=== PATIENT | female | born 1995 | race Caucasian/White ===

== ENCOUNTER 2022-11-07 18:44 | Observation (INO) | payer MEDICAID, SELFPAY ==
[2022-11-07 18:45] VITALS: BP 144/100; PULSE 108; RESP 16; TEMP 36.3; O2SAT 98; BMI 27.2
--- NOTE | 2022-11-07 19:11 | EX.ED.SAOD ---
HPI History of Present Illness Chief Complaint: Substance Abuse Narrative Narrative: 27-year-old female presents for detox from heroin and Xanax/benzodiazepines. She states she last used 2 days ago where she took 4 mg of Xanax, and injected heroin. She usually uses a gram a day. She states that she used to snort heroin but started hanging out with the wrong crowd and states she started injecting. She last used 2 days ago again. She presents for detox. She states the last time she went through rehab was when she was in [facility]. She was sober for a year until a few months ago. She states she is ready to get clean and denies any suicidal ideation. No hallucinations. She states that over the last few days she has had nausea and vomiting and diarrhea and has been sick. PFSH PFSH Allergy/AdvReac Type Severity Reaction Status Date / Time No Known Allergies Allergy Verified 11/07/22 18:47 Social History Smoking Status: Current every day smoker tobacco type: cigarettes ROS ROS ED ROS Narrative Constitutional: No fever, no chills. HEENT: No sore throat. No neck pain. No loss of vision. No rhinorrhea. Cardiovascular: No chest pain. No palpitations. No pedal edema. Respiratory: No cough, no shortness of breath. Abdominal: No abdominal pain. Positive nausea. Positive vomiting. Positive diarrhea. Genitourinary: No dysuria. No hematuria. Musculoskeletal: No myalgias. No arthralgias. Neurologic: No headaches. No dizziness. No lightheadedness. Sick and shaky. Skin: No rash. No change in color. Psychiatric: No depression. No anxiety. EXAM Physical Exam Narrative Exam Narrative: Afebrile. Vital signs noted. HEENT: Normocephalic. Atraumatic. PERRL, EOMI. Neck soft and supple. No point tenderness or step off. Cardiovascular: Mild tachycardia at 108. No murmurs, rubs, or gallops appreciated. Respiratory: No tachypnea. Lungs clear to auscultation bilaterally. Gastrointestinal: Abdomen soft, nontender, with normoactive bowel sounds. No rebound or guarding. Neurological: Awake. Alert. Nonfocal, nonlateralizing. Skin: No rash. Normal color. No pallor. Musculoskeletal: No pedal edema. Full range of motion extremities. Const Vital Signs: 11/07/22 18:45 Temperature 97.3 F L Temperature Source Temporal Pulse Rate 108 H Respiratory Rate 16 Blood Pressure 144/100 H Blood Pressure Mean 114 Pulse Ox 98 Oxygen Delivery Method Room Air MDM MDM MDM Narrative Medical decision making narrative: Medical screening labs were obtained. CBC shows slightly elevated white count of 11.5 which I think is nonspecific, hemoglobin normal at 13.9, normal platelet count. Electrolyte panel shows chloride slightly elevated at 113, normal BUN and normal creatinine. Urine for drugs of abuse positive for barbiturates, benzodiazepines, and cocaine. Negative for opiates. Alcohol level is negative. Serum is negative. At this point in time, she will be discussed with the hospitalist, Dr. Hernandez, for admission to detox. Patient is in stable condition. She did request Tylenol for dental pain which she was given 1 g orally. Lab Data Attestation: I reviewed the patient's lab results. Labs: Laboratory Results - last 24 hr 11/07/22 11/07/22 11/07/22 19:20 19:40 19:40 WBC 11.5 H RBC 4.78 Hgb 13.9 Hct 43.9 MCV 91.8 MCH 29.1 MCHC 31.7 L RDW Std Deviation 46.2 H RDW Coeff of Anna 13.6 Plt Count 298 MPV 10.8 Immature Gran % (Auto) 0.300 Neut % (Auto) 75.9 H Lymph % (Auto) 18.8 L [place] % (Auto) 3.8 Eos % (Auto) 0.9 Baso % (Auto) 0.3 Absolute Neuts (auto) 8.7 H Absolute Lymphs (auto) 2.16 Nucleated RBC % 0 Sodium 141 Potassium 3.6 Chloride 113 H Carbon Dioxide 22.0 Anion Gap 6 BUN 11 Creatinine 0.81 Estim Creat Clear Calc 110.82 Est GFR (MDRD) Af Amer 108 Est GFR (MDRD) Non-Af 89 BUN/Creatinine Ratio 13.6 Glucose 128 H Calcium 9.1 Total Bilirubin 0.20 AST 13 L ALT 32 Alkaline Phosphatase 70 Total Protein 7.7 Albumin 3.4 Globulin 4.3 H Albumin/Globulin Ratio 0.8 L Serum , Qual Urine Opiates Screen NEGATIVE Urine Methadone Screen NEGATIVE Ur Barbiturates Screen POSITIVE H Ur Phencyclidine Scrn NEGATIVE Ur Amphetamines Screen NEGATIVE MDMA (Ecstasy) Screen NEGATIVE U Benzodiazepines Scrn POSITIVE H Urine Cocaine Screen POSITIVE H U Cannabinoids Screen NEGATIVE Ur Drug Screen Comment Ethyl Alcohol 11/07/22 11/07/22 19:40 19:40 WBC RBC Hgb Hct MCV MCH MCHC RDW Std Deviation RDW Coeff of Anna Plt Count MPV Immature Gran % (Auto) Neut % (Auto) Lymph % (Auto) [place] % (Auto) Eos % (Auto) Baso % (Auto) Absolute Neuts (auto) Absolute Lymphs (auto) Nucleated RBC % Sodium Potassium Chloride Carbon Dioxide Anion Gap BUN Creatinine Estim Creat Clear Calc Est GFR (MDRD) Af Amer Est GFR (MDRD) Non-Af BUN/Creatinine Ratio Glucose Calcium Total Bilirubin AST ALT Alkaline Phosphatase Total Protein Albumin Globulin Albumin/Globulin Ratio Serum , Qual NEGATIVE Urine Opiates Screen Urine Methadone Screen Ur Barbiturates Screen Ur Phencyclidine Scrn Ur Amphetamines Screen MDMA (Ecstasy) Screen U Benzodiazepines Scrn Urine Cocaine Screen U Cannabinoids Screen Ur Drug Screen Comment Ethyl Alcohol < 3.0 Discharge Plan Dx/Rx/DC Orders Clinical Impression: Desire for detoxification, Heroin dependence, Benzodiazepine abuse Disposition Disposition: Acute Care Hospital [facility]
[2022-11-07 19:47] LABS: Absolute Lymphocyte Count 2.16 X10^3/uL (0.83-4.51); Absolute Neutrophil Count 8.7 X10^3/uL (2.0-7.7); Basophil# 0.03 X10^3/uL; Basophil% 0.3 % (0-1); Eosinophils% 0.9 % (0-5); Hematocrit 43.9 % (37-47); Hemoglobin 13.9 g/dL (12.0-15.0); Lymphocyte # 2.16 X10^3/ul (0.83-4.51); Lymphocyte % 18.8 % (19-41); Mean Corp Hgb Conc 31.7 g/dL (32-36); Mean Corpuscular Hgb 29.1 pg (27.0-32.0); Mean Corpuscular Volume 91.8 fL (81-99); Mean Platelet Vol. 10.8 fl (6.2-12.0); Monocyte# 0.44 X10^3/uL; Monocyte% 3.8 % (0-10); NRBC Flagged by Analyzer 0 % (0-5); Neutrophil % 75.9 % (47-70); Platelet Count 298 K/mm3 (150-450); RBC Distribution Width CV 13.6 % (11.6-14.6); RBC Distribution Width SD 46.2 fl (35.1-43.9); Red Blood Count 4.78 M/mm3 (4.2-5.4); White Blood Count 11.5 K/mm3 (4.4-11.0)
[2022-11-07 20:05] LABS: Alcohol, Blood (Medical)-Serum < 3.0 mg/dL
[2022-11-07 20:05] LABS: Amphetamine Urine VISTA NEGATIVE (<1000 ng/mL); Barbiturate Urine VISTA POSITIVE (< 200 ng/mL); Benzodiazepine Urine VISTA POSITIVE (< 200 ng/mL); Cocaine Urine VISTA POSITIVE (< 300 ng/mL); Ecstacy Urine VISTA NEGATIVE (< 500 ng/mL); Methadone Urine VISTA NEGATIVE (< 300 ng/mL); PCP Urine VISTA NEGATIVE (< 25 ng/mL); THC Urine VISTA NEGATIVE (< 50 ng/mL); Vista UDS pH Range 8
[2022-11-07 20:06] LABS: ALB/GLOB Ratio 0.8 RATIO (0.9-2.4); AST(SGOT) 13 U/L (15-37); Alanine Aminotransfer ALT/SGPT 32 U/L (13-56); Albumin, Serum 3.4 g/dL (3.2-5.0); Alkaline Phosphatase 70 U/L (45-117); Anion Gap 6 (5-15); BUN 11 mg/dL (7-18); BUN/Creat Ratio 13.6 RATIO (10-20); Calcium,Total 9.1 mg/dL (8.5-10.1); Chloride 113 mmol/L (98-107); Creatinine, Serum 0.81 mg/dL (0.55-1.02); EST Glomerular Filtration Rate 89 mL/min (>60); Est Glom Filt Rate - Afr Amer 108 mL/min (>60); Estimated Creatinine Clearance 110.82 ml/min; Globulin 4.3 g/dL (2.2-4.2); Glucose 128 mg/dL (74-106); Potassium 3.6 mmol/L (3.5-5.1); Protein, Total 7.7 g/dL (6.4-8.2); Sodium Level 141 mmol/L (136-145)
[2022-11-07 20:10] LABS: Internal QC Validated? YES +Cl - CLEAR BKGD; Pregnancy, Serum, hCG Quali. NEGATIVE Negative
[2022-11-07] MEDS: Acetaminophen 500 MG Tablet 1000 MG PO (20:28)
--- NOTE | 2022-11-07 21:13 | PCM.HP.STD ---
HPI - General General Date of Admission: 11/07/22 Date of Service: 11/07/22 Chief Complaint: Desire for detoxification HPI Narrative ALEYDA MORGAN, is a 27 F with a significant history of polysubstance abuse who presents to the emergency department with help for detoxification. Of note the patient's uses Xanax and heroin. Xanax use: Reportedly, she has been using 2 tablets of 2 mg Xanax daily that is a total of 4 mg daily. She takes it orally. Reportedly she has been using for 'few years'. Last time she used was 2 days ago. Heroin use: Reportedly she uses 1 g every day. She snorts. Reportedly she has been using for 'few years'. Last time she used was 2 days ago. [facility]. She reportedly she [facility] out from the [facility] in October 2021. She reports resuming both Xanax and heroin in July 2022. Also she reported she was on Vivitrol with last Vivitrol given in July 2022. She reports withdrawal symptoms of chills, yawning, watery eyes, nausea and headaches. [facility] Medical History (Updated 11/07/22 @ 23:08 by Donnell Tate) Anxiety Depression PTSD (post-traumatic stress disorder) Smoker Substance abuse Medical History no medical history no medical history Home Medications NK 11/07/22 [History Last Taken Unknown] Allergy/AdvReac Type Severity Reaction Status Date / Time No Known Allergies Allergy Verified 11/07/22 18:47 Family History other other (Denies knowledge of maternal and paternal medical history.) Surgical History no surgical history no surgical history Social History Smoking Status: Current every day smoker tobacco type: cigarettes ROS ROS Narrative Pertinent positives and pertinent negatives as noted in HPI. All other systems were reviewed and are negative Vital Signs Vital Signs Vital Signs: 11/07/22 18:45 Temperature 97.3 F L Temperature Source Temporal Pulse Rate 108 H Respiratory Rate 16 Blood Pressure 144/100 H Blood Pressure Mean 114 Pulse Ox 98 Oxygen Delivery Method Room Air Weight Weight: 86.183 kg Body Mass Index (BMI) 27.2 Physical Exam Narrative Physical exam: General: Well-nourished, well-developed. Head: Normocephalic, atraumatic, no tenderness Eyes: Vision is grossly intact. EOMI ENT: Poor dentition. No trauma, moist mucous membranes, no rhinorrhea Neck: Nontender, No thyromegaly. CVS: Regular rate and rhythm. S1-S2 present. No murmur, gallop or rub. Respiratory : clear to auscultation bilaterally, chest wall nontender, no wheezing Abdomen: Soft, nontender, nondistended, normal bowel sounds, no masses : Deferred Back: Nontender, no CVA tenderness, no midline spinal tenderness, deformities, step-offs Extremities: Nontender full range of motion, no trauma Skin: Normal color, no trauma, abrasions Neuro: Alert, oriented, cranial nerves II through XII grossly intact. Psychiatry: Normal mood. Normal affect. Not depressed. Not anxious. Results Lab / Micro Data Result Diagrams: 11/07/22 19:40 11/07/22 19:40 Labs: Laboratory Results - last 24 hr 11/07/22 19:20: Urine Opiates Screen NEGATIVE, Urine Methadone Screen NEGATIVE, Ur Barbiturates Screen POSITIVE H, Ur Phencyclidine Scrn NEGATIVE, Ur Amphetamines Screen NEGATIVE, MDMA (Ecstasy) Screen NEGATIVE, U Benzodiazepines Scrn POSITIVE H, Urine Cocaine Screen POSITIVE H, U Cannabinoids Screen NEGATIVE, Ur Drug Screen Comment 11/07/22 19:40: WBC 11.5 H, RBC 4.78, Hgb 13.9, Hct 43.9, MCV 91.8, MCH 29.1, MCHC 31.7 L, RDW Std Deviation 46.2 H, RDW Coeff of Anna 13.6, Plt Count 298, MPV 10.8, Immature Gran % (Auto) 0.300, Neut % (Auto) 75.9 H, Lymph % (Auto) 18.8 L, [place] % (Auto) 3.8, Eos % (Auto) 0.9, Baso % (Auto) 0.3, Absolute Neuts (auto) 8.7 H, Absolute Lymphs (auto) 2.16, Nucleated RBC % 0 11/07/22 19:40: Sodium 141, Potassium 3.6, Chloride 113 H, Carbon Dioxide 22.0, Anion Gap 6, BUN 11, Creatinine 0.81, Estim Creat Clear Calc 110.82, Est GFR (MDRD) Af Amer 108, Est GFR (MDRD) Non-Af 89, BUN/Creatinine Ratio 13.6, Glucose 128 H, Calcium 9.1, Total Bilirubin 0.20, AST 13 L, ALT 32, Alkaline Phosphatase 70, Total Protein 7.7, Albumin 3.4, Globulin 4.3 H, Albumin/Globulin Ratio 0.8 L 11/07/22 19:40: Ethyl Alcohol < 3.0 11/07/22 19:40: Serum , Qual NEGATIVE Assessment & Plan Assessment/Plan (1) Desire for detoxification: (2) Heroin dependence: (3) Benzodiazepine abuse: (4) Tobacco abuse: PLAN: Plan Benzodiazepine dependence and desire for detoxification Patient be started on phenobarbital and other adjunctive medications: Gabapentin as needed; dicyclomine as needed; Vistaril as needed; Imodium as needed; trazodone as needed; Zofran as needed; scheduled thiamine; and schedule folic acid. Monitor CIWA score Opioid dependence and withdrawal Patient be started on Subutex and other adjunctive medications: Gabapentin as needed; dicyclomine as needed; Vistaril as needed; methocarbamol as needed; clonidine as needed; Imodium as needed; trazodone as needed and Zofran as needed. Monitor COWS and CINA score. Patient declined Subutex. She reports that in the past she was on Vivitrol and she does not wounds Suportx. She thinks that with phenobarbital Tobacco abuse Counseled Nicotine patch and gum prescribed. DVT prophylaxis Low risk Encourage to ambulate DVT prophylaxis Low risk Encourage to ambulate Charges/Coding Visit Charges Inpatient E&M: 90337 Init Hosp L2
[2022-11-07 22:21] VITALS: BP 150/81; PULSE 102; RESP 16; TEMP 36.7; O2SAT 98
[2022-11-07 22:56] VITALS: BMI 28.3
[2022-11-07 23:19] VITALS: BP 141/90; PULSE 103; RESP 16; TEMP 36.7; O2SAT 100
[2022-11-07] MEDS: traZODone 100 MG Tablet PO (23:24)
[2022-11-07] MEDS: Phenobarbital 32.4 MG Tablet 64.8 MG PO (23:24)
[2022-11-08] VITALS (7 sets, daily range): BP systolic 124–143; BP diastolic 80–94; PULSE 75–104; RESP 14–20; TEMP 36.4–37.2; O2SAT 98–100
[2022-11-08] MEDS: hydrOXYzine PAM 25 MG Capsule 50 MG PO ×2 (02:22→16:16)
[2022-11-08] MEDS: cloNIDine HCl 0.1 MG Tablet PO ×3 (02:22→18:46)
[2022-11-08] MEDS: Phenobarbital 32.4 MG Tablet 64.8 MG PO ×6 (02:22→22:51)
[2022-11-08] MEDS: Methocarbamol 750 MG Tablet 1500 MG PO ×2 (09:29→16:17)
[2022-11-08] MEDS: Gabapentin 300 MG Capsule PO ×2 (09:29→19:59)
[2022-11-08] MEDS: Nicotine Polacrilex 2 MG GUM PO ×3 (09:30→20:03)
--- NOTE | 2022-11-08 11:44 | PN.HOSP_ITS ---
Subjective Subjective Doing well, clearly has some withdrawal symptoms going on, she asked that when she is discharged to be discharged with Vivitrol, nursing notified me that she was kicked out of her rehab facility yesterday for dealing drugs so I did let the patient know that she will not get any medications on discharge. She had a Cina score of 7 this morning and a CIWA?B score of 29 Objective Data Objective Data Vital Signs: Vital Signs Temp Pulse Resp BP Pulse Ox O2 Del Method 97.9 F 102 H 20 H 137/94 H 100 Room Air 11/08/22 06:13 11/08/22 06:13 11/08/22 06:13 11/08/22 06:13 11/08/22 07:21 11/08/22 07:21 Oxygen Delivery Method Room Air Weight: 197 lb 14.4 oz Body Mass Index (BMI) 28.3 Lab / Micro Data Result Diagrams: 11/07/22 19:40 11/07/22 19:40 Labs: Laboratory Results - last 24 hr 11/07/22 19:20: Urine Opiates Screen NEGATIVE, Urine Methadone Screen NEGATIVE, Ur Barbiturates Screen POSITIVE H, Ur Phencyclidine Scrn NEGATIVE, Ur Amphetamines Screen NEGATIVE, MDMA (Ecstasy) Screen NEGATIVE, U Benzodiazepines Scrn POSITIVE H, Urine Cocaine Screen POSITIVE H, U Cannabinoids Screen NEGATIVE, Ur Drug Screen Comment 11/07/22 19:40: WBC 11.5 H, RBC 4.78, Hgb 13.9, Hct 43.9, MCV 91.8, MCH 29.1, MCHC 31.7 L, RDW Std Deviation 46.2 H, RDW Coeff of Anna 13.6, Plt Count 298, MPV 10.8, Immature Gran % (Auto) 0.300, Neut % (Auto) 75.9 H, Lymph % (Auto) 18.8 L, [place] % (Auto) 3.8, Eos % (Auto) 0.9, Baso % (Auto) 0.3, Absolute Neuts (auto) 8.7 H, Absolute Lymphs (auto) 2.16, Nucleated RBC % 0 11/07/22 19:40: Sodium 141, Potassium 3.6, Chloride 113 H, Carbon Dioxide 22.0, Anion Gap 6, BUN 11, Creatinine 0.81, Estim Creat Clear Calc 110.82, Est GFR (MDRD) Af Amer 108, Est GFR (MDRD) Non-Af 89, BUN/Creatinine Ratio 13.6, Glucose 128 H, Calcium 9.1, Total Bilirubin 0.20, AST 13 L, ALT 32, Alkaline Phosphatase 70, Total Protein 7.7, Albumin 3.4, Globulin 4.3 H, Albumin/Globulin Ratio 0.8 L 11/07/22 19:40: Ethyl Alcohol < 3.0 11/07/22 19:40: Serum , Qual NEGATIVE Physical Exam Narrative General: Alert, Oriented x3, Cooperative, restless HEENT: Atraumatic, PERRLA, EOMI, Normocephalic Oral: Moist Mucosa Neck: Supple, No JVD Lungs: Clear to auscultation, Normal air movement, No rhonchi, No wheeze, No rales Cardiovascular: Regular rate, Regular Rhythm, Normal S1, Normal S2, No murmurs Abdomen: Soft, Non Tender, Non-Distended, No Hepato-splenomegaly Extremities: No edema, Capillary Refill Less than 3 Seconds Skin: No rashes, No breakdown Musculoskeletal: No Tenderness to Palpation of Joints or Extremities Neurological: Cranial nerves II-XII grossly intact, Motor Exam 5/5 strength throughout, Sensory exam intact to light touch and pain Psych/Mental Status: Anxious, Appropriate Assessment & Plan Assessment/Plan (1) Desire for detoxification: (2) Heroin dependence: (3) Benzodiazepine abuse: (4) Tobacco abuse: PLAN: Plan 1. Detox from heroin as well as benzodiazepine use/tobacco abuse ? Continue with the benzo and heroin detox protocol ? We will have her follow-up with 180, apparently she was just kicked out of her rehab facility for dealing drugs we will see if we can get her placed anywhere else versus outpatient rehab ? Continue with nicotine patch, counseled on cessation DVT: Ambulation Charges/Coding Visit Charges Inpatient E&M: 67537 Subs Hosp L2
--- NOTE | 2022-11-08 12:14 | ADDICTION ---
This song writer met with PT to conduct ASAM, MSE, AUDIT, DUDIT assessments and to plan for d/c. PT A+Ox4 and participated actively. All assessments completed and placed in PT's chart. PT plans to f/u with [facility] for follow-up MAT treatment services. PT did not indicate a need for transportation post d/c from [facility].
--- NOTE | 2022-11-08 16:56 | NURSING ---
updated pts dad, lissa damon, with her permission. ([phone])
[2022-11-08] MEDS: Acetaminophen 325 MG Tablet 650 MG PO (22:51)
[2022-11-08] MEDS: traZODone 100 MG Tablet PO (22:51)
[2022-11-09 03:13] VITALS: BP 145/65; PULSE 83; RESP 16; TEMP 36.9; O2SAT 100
[2022-11-09] MEDS: Phenobarbital 32.4 MG Tablet 64.8 MG PO ×3 (03:18→10:43)
[2022-11-09 06:29] VITALS: BP 152/108; PULSE 109
[2022-11-09] MEDS: cloNIDine HCl 0.1 MG Tablet PO (06:36)
[2022-11-09] MEDS: Nicotine Polacrilex 2 MG GUM PO ×2 (07:30→12:39)
[2022-11-09 08:38] VITALS: BP 116/80; PULSE 92; RESP 18; TEMP 36.9; O2SAT 98
[2022-11-09] MEDS: Gabapentin 300 MG Capsule PO (09:09)
--- NOTE | 2022-11-09 09:48 | PCM.PN.HOSP ---
Subjective Subjective Doing well, no issues overnight. Cina score of 1 and a CIWA?B score of 7 Objective Data Objective Data Vital Signs: Vital Signs Temp Pulse Resp BP Pulse Ox O2 Del Method 98.5 F 92 18 116/80 98 Room Air 11/09/22 08:38 11/09/22 08:38 11/09/22 08:38 11/09/22 08:38 11/09/22 08:38 11/09/22 08:38 Oxygen Delivery Method Room Air Weight: 197 lb 14.4 oz Body Mass Index (BMI) 28.3 Intake & Output: Intake and Output for Last 24 Hours 11/08/22 11/09/22 11/10/22 03:59 03:59 03:59 Intake Total 500 / 500 500 / 500 Balance 500 / 500 500 / 500 Lab / Micro Data Result Diagrams: 11/07/22 19:40 11/07/22 19:40 Physical Exam Narrative General: Alert, Oriented x3, Cooperative, restless HEENT: Atraumatic, PERRLA, EOMI, Normocephalic Oral: Moist Mucosa Neck: Supple, No JVD Lungs: Clear to auscultation, Normal air movement, No rhonchi, No wheeze, No rales Cardiovascular: Regular rate, Regular Rhythm, Normal S1, Normal S2, No murmurs Abdomen: Soft, Non Tender, Non-Distended, No Hepato-splenomegaly Extremities: No edema, Capillary Refill Less than 3 Seconds Skin: No rashes, No breakdown Musculoskeletal: No Tenderness to Palpation of Joints or Extremities Neurological: Cranial nerves II-XII grossly intact, Motor Exam 5/5 strength throughout, Sensory exam intact to light touch and pain Psych/Mental Status: Anxious, Appropriate Assessment & Plan Assessment/Plan (1) Desire for detoxification: (2) Heroin dependence: (3) Benzodiazepine abuse: (4) Tobacco abuse: PLAN: Plan 1. Detox from heroin as well as benzodiazepine use/tobacco abuse ? Continue with the benzo and heroin detox protocol ? We will have her follow-up with 180, apparently she was just kicked out of her rehab facility for dealing drugs we will see if we can get her placed anywhere else versus outpatient rehab ? Continue with nicotine patch, counseled on cessation DVT: Ambulation Charges/Coding Visit Charges Inpatient E&M: 84674 Subs Hosp L2
[2022-11-09] MEDS: hydrOXYzine PAM 25 MG Capsule 50 MG PO (12:39)
[2022-11-09] MEDS: Methocarbamol 750 MG Tablet 1500 MG PO (12:43)
--- NOTE | 2022-11-09 14:21 | NURSING ---
pt states she is leaving. AMA paperwork signed. suzyes opened. pt states she will use her cell phone and call for a ride.
== END 2022-11-09 15:58 | disposition left against medical advice (07) | DRG 770 ==
LOC: ED 20:27 → MS3 11-08 07:01
PROVIDERS: Admitting Provider Hospitalist; Emergency Provider Emergency Medicine; Visit Provider Family Medicine
DX: F11.23 Opioid dependence with withdrawal (principal); F13.20 Sedative, hypnotic or anxiolytic dependence, uncomplicated; F17.210 Nicotine dependence, cigarettes, uncomplicated
CPT/HCPCS: 80053; 80307; 82077; 84703; 85025; 99221; 99283; 99406; H0012; G0378